=== PATIENT | female | born 1990 ===

== ENCOUNTER 2018-06-30 09:32 | Inpatient (IN) ==
[2018-06-30] MEDS ORDERED: FAMOTIDINE 20 MG/2 ML VIAL IV ONE (10:04)
[2018-06-30] MEDS ORDERED: ceFAZolin 2,000 MG in PREMIX 1 EACH IV ONE (10:04)
[2018-06-30] MEDS ORDERED: CITRIC ACID/SODIUM CITRATE 30 ML UDCUP PO ONE (10:04)
[2018-06-30] MEDS ORDERED: OXYTOCIN/LR 30 UNIT/1,000 ML BAG IV ONE (10:06)
[2018-06-30] MEDS ORDERED: OXYTOCIN 10 UNIT/ML VIAL IM ONE (10:06)
[2018-06-30 10:30] LABS: Basophils % 0.3 % (0.0-0.8); Eosinophils % 0.3 % (0.00-10.9); Hematocrit 30.1 VOL% (35.7-47.0); Hemoglobin 9.6 GM/DL (12.0-16.0); Immature Granulocytes % 0.4 %; Immature Granulocytes Absolute 0.03 #; Lymphocytes # 2.2 10*3/uL (1.4-4.0); Lymphocytes % 27.6 % (21.3-54.2); Mean Corpuscular HGB Conc 31.9 GM/DL (32-36); Mean Corpuscular Hemoglobin 25 PG (27-34); Mean Corpuscular Volume 78.8 FL (87-102); Mean Platelet Volume 11.7 FL (9.6-12.0); Monocytes # 0.5 10*3/uL (0.11-0.8); Monocytes % 5.9 % (1.7-12.7); NRBC # 0.02 10*3/uL; Neutrophils # 5.1 10*3/uL (1.4-7.4); Neutrophils % 65.5 % (38.7-73.9); Platelet Count 258 T/CUMM (130-400); Red Blood Count 3.82 MC/CUMM (3.8-5.5); Red Cell Distribution Width 15.3 % (9.3-17.3); White Blood Count 7.8 T/CUMM (4-12)
[2018-06-30] MEDS ORDERED: LACTATED RINGERS 1,000 ML IV SCH (10:30)
[2018-06-30 10:52] LABS: Albumin 2.4 G/DL (3.4-5.0); Bilirubin,Total 0.4 MG/DL (0.2-1.0); Calcium 8.1 MG/DL (8.5-10.1); Osmolality,Calculated 268.8 MOS/KG (273-304); Potassium 3.6 MMOL/L (3.5-5.1)
[2018-06-30 14:01] LABS: Cord Arterial Blood HCO3 20.6 MMOL/L
[2018-06-30 14:05] LABS: Cord Venous Blood HCO3 22.1 MMOL/L; Cord Venous Blood PCO2 45.7 MMHG; Cord Venous Blood PO2 22.5
[2018-06-30] MEDS ORDERED: fentaNYL 100 MCG/2 ML VIAL ONE (14:05)
[2018-06-30] MEDS ORDERED: BUPIVACAINE SPINAL 0.75% 2 ML AMP SPINAL ONE (14:05)
[2018-06-30] MEDS ORDERED: MORPHINE 10 MG/10 ML VIAL ONE (14:05)
[2018-06-30] MEDS ORDERED: ONDANSETRON 4 MG/2 ML VIAL ONE (14:06)
[2018-06-30] MEDS ORDERED: PHENYLEPHRINE 1 MG/10 ML SYRINGE IV ONE (14:06)
[2018-06-30 14:12] LABS: Apearance,Urine CLEAR (Clear); Bacteria,Urine Occasional /HPF (Few); Bilirubin,Urine Negative (Negative); Blood, Urine Negative (Negative); Glucose,Urine (UA) Negative (Negative); Ketones,Urine Negative (Negative); Mucus,Urine Occasional /LPF (Occasional); Nitrite,Urine Positive (Negative); Protein,Urine Negative; RBC,Urine 2 /HPF (0-4); Squamous Epithelial Cell,Urine Occasional /HPF (0-10); Urine Color Yellow (Yellow); Urine Specific Gravity 1.006 (1.001-1.035); Urine Urobilinogen < 2.0 EU/DL (0.2-1.0); WBC,Urine 4 /HPF (0-6)
[2018-06-30] MEDS ORDERED: ONDANSETRON 4 MG/2 ML VIAL IV PRN (14:50)
[2018-06-30] MEDS ORDERED: SIMETHICONE CHEW 80 MG TABLET PO PRN (14:50)
[2018-06-30] MEDS ORDERED: MAGNESIUM HYDROXIDE SUSP 30 ML UDCUP PO PRN (14:50)
[2018-06-30] MEDS ORDERED: OXYTOCIN/LR 20 UNIT/1,000 ML BAG IV ONE (14:50)
[2018-06-30] MEDS ORDERED: ACETAMINOPHEN 325 MG TABLET PO PRN (14:50)
[2018-06-30] MEDS ORDERED: IBUPROFEN 800 MG TABLET PO PRN (14:50)
[2018-06-30] MEDS ORDERED: RHO(D) IMMUNE GLOBULIN 300 MCG SYRINGE IM ONE (15:30)
[2018-06-30] MEDS ORDERED: ceFAZolin 1,000 MG in SYRINGE 1 EACH IV SCH (18:00)
[2018-06-30 21:41] LABS: Basophils % 0.1 % (0.0-0.8); Hematocrit 29.9 VOL% (35.7-47.0); Hemoglobin 9.5 GM/DL (12.0-16.0); Immature Granulocytes % 0.3 %; Immature Granulocytes Absolute 0.03 #; Lymphocytes # 1.9 10*3/uL (1.4-4.0); Lymphocytes % 20.9 % (21.3-54.2); Mean Corpuscular HGB Conc 31.8 GM/DL (32-36); Mean Corpuscular Hemoglobin 25 PG (27-34); Mean Corpuscular Volume 78.7 FL (87-102); Mean Platelet Volume 11.6 FL (9.6-12.0); Monocytes # 0.5 10*3/uL (0.11-0.8); Monocytes % 5.9 % (1.7-12.7); Neutrophils # 6.7 10*3/uL (1.4-7.4); Neutrophils % 72.8 % (38.7-73.9); Platelet Count 232 T/CUMM (130-400); Red Cell Distribution Width 15.2 % (9.3-17.3); White Blood Count 9.2 T/CUMM (4-12)
[2018-06-30] MEDS: ceFAZolin 1,000 MG in SYRINGE 1 EACH IV SCH (21:57)
[2018-07-01] MEDS: ceFAZolin 1,000 MG in SYRINGE 1 EACH IV SCH (05:27)
[2018-07-01 05:33] LABS: Basophils % 0.3 % (0.0-0.8); Eosinophils % 0.3 % (0.00-10.9); Hematocrit 32.5 VOL% (35.7-47.0); Hemoglobin 10.2 GM/DL (12.0-16.0); Immature Granulocytes % 0.3 %; Immature Granulocytes Absolute 0.03 #; Lymphocytes # 2.6 10*3/uL (1.4-4.0); Lymphocytes % 25.9 % (21.3-54.2); Mean Corpuscular HGB Conc 31.4 GM/DL (32-36); Mean Corpuscular Hemoglobin 25 PG (27-34); Mean Corpuscular Volume 79.1 FL (87-102); Mean Platelet Volume 11.6 FL (9.6-12.0); Monocytes # 0.7 10*3/uL (0.11-0.8); Monocytes % 6.9 % (1.7-12.7); Neutrophils # 6.5 10*3/uL (1.4-7.4); Neutrophils % 66.3 % (38.7-73.9); Platelet Count 258 T/CUMM (130-400); Red Blood Count 4.11 MC/CUMM (3.8-5.5); Red Cell Distribution Width 15.3 % (9.3-17.3); White Blood Count 9.9 T/CUMM (4-12)
[2018-07-01] MEDS: DOCUSATE SODIUM 100 MG CAPSULE PO SCH ×4 (05:55→20:02)
[2018-07-01] MEDS: LACTATED RINGERS 1,000 ML IV SCH ×3 (05:56→17:59)
[2018-07-01] MEDS: MULTIVITAMIN (PRENATAL) TABLET PO SCH ×2 (07:53→15:01)
[2018-07-01] MEDS: FERROUS SULFATE 325 MG TABLET PO SCH ×2 (15:03→21:23)
[2018-07-02 07:32] VITALS: BP 118/66
[2018-07-02] MEDS: DOCUSATE SODIUM 100 MG CAPSULE PO SCH (09:56)
[2018-07-02] MEDS: MULTIVITAMIN (PRENATAL) TABLET PO SCH (09:57)
[2018-07-02] MEDS: FERROUS SULFATE 325 MG TABLET PO SCH (09:57)
== END 2018-07-02 12:25 | disposition home or self-care (01) | DRG 540 ==
LOC: N.LDOUT 09:32 → N.LD 09:36 → N.OB 17:21
PROVIDERS: ADMIT Obstetrics & Gynecology; ATTEND Obstetrics & Gynecology
PROC: LDCSECT (ICD-10-PCS; 2018-06-30 12:30)

== ENCOUNTER 2019-07-20 05:55 | Inpatient (IN) ==
[2019-07-20] MEDS ORDERED: CITRIC ACID/SODIUM CITRATE 30 ML UDCUP PO ONE (06:08)
[2019-07-20] MEDS ORDERED: FAMOTIDINE 20 MG/2 ML VIAL IV ONE (06:08)
[2019-07-20] MEDS ORDERED: NALOXONE 0.4 MG/ML VIAL IV PRN (06:30)
[2019-07-20] MEDS ORDERED: ePHEDrine 50 MG/ML AMP IV PRN (06:30)
[2019-07-20] MEDS ORDERED: ceFAZolin 2,000 MG in PREMIX 1 EACH IV ONE (06:30)
[2019-07-20] MEDS ORDERED: FAMOTIDINE 20 MG TABLET PO ONE (06:30)
[2019-07-20] MEDS ORDERED: hydrOXYzine HCL 25 MG/1 ML VIAL IM PRN (06:30)
[2019-07-20] MEDS ORDERED: PROMETHAZINE 25 MG/1 ML VIAL IM PRN (06:30)
[2019-07-20] MEDS ORDERED: diphenhydrAMINE 50 MG/1 ML VIAL IV PRN ×2 (06:30→16:25)
[2019-07-20] MEDS ORDERED: fentaNYL 2 MCG/ROPIV 0.2% EPID 100 ML EPIDURAL SCH (06:30)
[2019-07-20] MEDS ORDERED: LACTATED RINGERS 1,000 ML IV SCH (06:30)
[2019-07-20] MEDS: LACTATED RINGERS 1,000 ML IV SCH ×3 (06:35→18:37)
[2019-07-20 06:49] LABS: Basophils % 0.1 % (0.0-0.8); Hematocrit 27.6 VOL% (35.7-47.0); Hemoglobin 8.4 GM/DL (12.0-16.0); Immature Granulocytes % 0.5 %; Immature Granulocytes Absolute 0.06 #; Lymphocytes # 0.7 10*3/uL (1.4-4.0); Lymphocytes % 6.1 % (21.3-54.2); Mean Corpuscular HGB Conc 30.4 GM/DL (32-36); Mean Corpuscular Volume 77.3 FL (87-102); Mean Platelet Volume 11.2 FL (9.6-12.0); Neutrophils % 92.3 % (38.7-73.9); Platelet Count 224 T/CUMM (130-400); Red Blood Count 3.57 MC/CUMM (3.8-5.5); Red Cell Distribution Width 16.1 % (9.3-17.3); White Blood Count 11.4 T/CUMM (4-12)
[2019-07-20 07:14] LABS: Hypochromasia 1+; Lymphocytes 7 % (20-55); Ovalocytes Slight; Platelet Estimate Adequate; Segmented Neutrophils 93 % (50-85); Total Cells Counted 100
[2019-07-20] MEDS ORDERED: OXYTOCIN/LR 30 UNIT/1,000 ML BAG IV ONE (07:41)
[2019-07-20] MEDS ORDERED: OXYTOCIN 10 UNIT/ML VIAL IM ONE (07:41)
[2019-07-20] MEDS ORDERED: OXYTOCIN/LR 20 UNIT/1,000 ML BAG IV SCH (08:00)
[2019-07-20 09:25] LABS: Cord Arterial Blood HCO3 21.2 MMOL/L
[2019-07-20] MEDS ORDERED: SIMETHICONE CHEW 80 MG TABLET PO PRN (09:26)
[2019-07-20] MEDS ORDERED: ONDANSETRON 4 MG/2 ML VIAL IV PRN (09:26)
[2019-07-20] MEDS ORDERED: RHO(D) IMMUNE GLOBULIN 300 MCG SYRINGE IM ONE (09:26)
[2019-07-20] MEDS ORDERED: OXYTOCIN/LR 20 UNIT/1,000 ML BAG IV ONE (09:26)
[2019-07-20] MEDS ORDERED: IBUPROFEN 800 MG TABLET PO PRN (09:26)
[2019-07-20] MEDS ORDERED: MAGNESIUM HYDROXIDE SUSP 30 ML UDCUP PO PRN (09:26)
[2019-07-20] MEDS ORDERED: ACETAMINOPHEN 325 MG TABLET PO PRN (09:26)
[2019-07-20 09:27] LABS: Cord Venous Blood HCO3 21.3 MMOL/L; Cord Venous Blood PCO2 41.7 MMHG; Cord Venous Blood PO2 27.8
[2019-07-20 09:32] LABS: Apearance,Urine CLEAR (Clear); Bacteria,Urine Many /HPF (Few); Bilirubin,Urine Negative (Negative); Blood, Urine Negative (Negative); Glucose,Urine (UA) Negative (Negative); Ketones,Urine 5 mg/dL (Negative); Mucus,Urine Few /LPF (Occasional); Nitrite,Urine Positive (Negative); Protein,Urine Negative; RBC,Urine 4 /HPF (0-4); Squamous Epithelial Cell,Urine Occasional /HPF (0-10); Urine Color Yellow (Yellow); Urine Specific Gravity 1.015 (1.001-1.035); Urine Urobilinogen < 2.0 EU/DL (0.2-1.0); WBC,Urine 46 /HPF (0-6)
[2019-07-20] MEDS ORDERED: BUPIVACAINE SPINAL 0.75% 2 ML AMP SPINAL ONE (09:56)
[2019-07-20] MEDS ORDERED: ONDANSETRON 4 MG/2 ML VIAL ONE (09:57)
[2019-07-20] MEDS ORDERED: DEXAMETHASONE 4 MG/1 ML VIAL ONE (09:57)
[2019-07-20] MEDS ORDERED: BUPIVACAINE MPF 0.25% 30 ML VIAL ONE (09:57)
[2019-07-20] MEDS ORDERED: PHENYLEPHRINE 1 MG/10 ML SYRINGE IV ONE (09:57)
[2019-07-20] MEDS ORDERED: MORPHINE 10 MG/10 ML VIAL ONE (09:57)
[2019-07-20] MEDS ORDERED: diphenhydrAMINE 50 MG/1 ML VIAL ONE (16:19)
[2019-07-20] MEDS ORDERED: SODIUM CHLORIDE 0.9% 50 ML IV ONE (16:20)
[2019-07-20] MEDS: ceFAZolin 1,000 MG in SYRINGE 1 EACH IV SCH (16:28)
[2019-07-20 17:03] LABS: Basophils % 0.1 % (0.0-0.8); Hematocrit 24.8 VOL% (35.7-47.0); Hemoglobin 7.5 GM/DL (12.0-16.0); Immature Granulocytes % 0.6 %; Immature Granulocytes Absolute 0.08 #; Lymphocytes % 7.1 % (21.3-54.2); Mean Corpuscular HGB Conc 30.2 GM/DL (32-36); Mean Platelet Volume 12.3 FL (9.6-12.0); Monocytes % 5.8 % (1.7-12.7); Neutrophils % 86.4 % (38.7-73.9); Platelet Count 237 T/CUMM (130-400); Red Blood Count 3.18 MC/CUMM (3.8-5.5); Red Cell Distribution Width 16.5 % (9.3-17.3); White Blood Count 13.6 T/CUMM (4-12)
[2019-07-20] MEDS: DOCUSATE SODIUM 100 MG CAPSULE PO SCH (21:08)
[2019-07-20] MEDS: FERROUS SULFATE 325 MG TABLET PO SCH (21:08)
[2019-07-20] MEDS ORDERED: diphenhydrAMINE CAP 25 MG CAPSULE PO PRN (22:35)
[2019-07-21] MEDS: ceFAZolin 1,000 MG in SYRINGE 1 EACH IV SCH (00:39)
[2019-07-21 00:59] LABS: Basophils % 0.1 % (0.0-0.8); Hematocrit 23.4 VOL% (35.7-47.0); Hemoglobin 7.2 GM/DL (12.0-16.0); Immature Granulocytes % 0.4 %; Immature Granulocytes Absolute 0.06 #; Lymphocytes # 1.6 10*3/uL (1.4-4.0); Lymphocytes % 11.7 % (21.3-54.2); Mean Corpuscular HGB Conc 30.8 GM/DL (32-36); Mean Platelet Volume 12.2 FL (9.6-12.0); Monocytes % 7.6 % (1.7-12.7); Neutrophils % 80.2 % (38.7-73.9); Platelet Count 236 T/CUMM (130-400); Red Cell Distribution Width 16.5 % (9.3-17.3); White Blood Count 13.4 T/CUMM (4-12)
[2019-07-21] MEDS: LACTATED RINGERS 1,000 ML IV SCH ×2 (02:42)
[2019-07-21] MEDS ORDERED: METOCLOPRAMIDE 10 MG TABLET PO PRN (08:00)
[2019-07-21] MEDS: METOCLOPRAMIDE 10 MG TABLET PO SCH ×2 (08:17→16:43)
[2019-07-21] MEDS: DOCUSATE SODIUM 100 MG CAPSULE PO SCH ×2 (08:17→20:22)
[2019-07-21] MEDS: FERROUS SULFATE 325 MG TABLET PO SCH ×2 (08:17→20:22)
[2019-07-21] MEDS: MULTIVITAMIN (PRENATAL) TABLET PO SCH (08:17)
[2019-07-21] MEDS ORDERED: diphenhydrAMINE CAP 50 MG CAPSULE ONE (16:56)
[2019-07-21] MEDS ORDERED: diphenhydrAMINE CAP 50 MG CAPSULE PO ONE (16:57)
[2019-07-22 07:11] VITALS: BP 117/70
[2019-07-22] MEDS: FERROUS SULFATE 325 MG TABLET PO SCH (10:12)
[2019-07-22] MEDS: DOCUSATE SODIUM 100 MG CAPSULE PO SCH (10:12)
[2019-07-22] MEDS: MULTIVITAMIN (PRENATAL) TABLET PO SCH (10:12)
== END 2019-07-22 12:00 | disposition home or self-care (01) | DRG 540 ==
LOC: N.LDOUT 05:55 → N.LD 05:59 → N.OB 13:02
PROVIDERS: ADMIT Obstetrics & Gynecology; ATTEND Obstetrics & Gynecology
PROC: LDCSECT (ICD-10-PCS; 2019-07-20 08:00)

== ENCOUNTER 2020-07-20 10:13 | Inpatient (IN) ==
[2020-07-20] MEDS ORDERED: CITRIC ACID/SODIUM CITRATE 30 ML UDCUP PO ONE (10:53)
[2020-07-20] MEDS ORDERED: FAMOTIDINE 20 MG/2 ML VIAL IV ONE (10:53)
[2020-07-20] MEDS ORDERED: ceFAZolin 2,000 MG in PREMIX 1 EACH IV ONE (10:53)
[2020-07-20] MEDS ORDERED: OXYTOCIN 10 UNIT/ML VIAL IM ONE (10:56)
[2020-07-20] MEDS ORDERED: OXYTOCIN/LR 30 UNIT/1,000 ML BAG IV ONE (10:56)
[2020-07-20 11:41] LABS: Basophils % 0.3 % (0.0-0.8); Hematocrit 25.6 VOL% (35.7-47.0); Hemoglobin 8.1 GM/DL (12.0-16.0); Immature Granulocytes % 0.5 %; Immature Granulocytes Absolute 0.03 #; Lymphocytes # 1.8 10*3/uL (1.4-4.0); Mean Corpuscular HGB Conc 31.6 GM/DL (32-36); Mean Corpuscular Volume 74.2 FL (87-102); Mean Platelet Volume 10.6 FL (9.6-12.0); Monocytes % 4.3 % (1.7-12.7); Neutrophils % 66.9 % (38.7-73.9); Platelet Count 229 T/CUMM (130-400); Red Blood Count 3.45 MC/CUMM (3.8-5.5); Red Cell Distribution Width 16.5 % (9.3-17.3); White Blood Count 6.5 T/CUMM (4-12)
[2020-07-20 12:01] LABS: Albumin 2.2 G/DL (3.4-5.0); Bilirubin,Total 0.7 MG/DL (0.2-1.0); Calcium 7.9 MG/DL (8.5-10.1); Osmolality,Calculated 275.4 MOS/KG (273-304); Potassium 3.6 MMOL/L (3.5-5.1); Total Protein 6.6 G/DL (6.4-8.2)
[2020-07-20] MEDS: LACTATED RINGERS 1,000 ML IV PRN ×2 (12:29→13:35)
[2020-07-20] MEDS ORDERED: fentaNYL 100 MCG/2 ML VIAL ONE (15:51)
[2020-07-20] MEDS ORDERED: PHENYLEPHRINE 1 MG/10 ML SYRINGE IV ONE (15:51)
[2020-07-20] MEDS ORDERED: BUPIVACAINE SPINAL 0.75% 2 ML AMP SPINAL ONE (15:51)
[2020-07-20] MEDS ORDERED: MORPHINE 10 MG/10 ML VIAL ONE (15:51)
[2020-07-20] MEDS ORDERED: ONDANSETRON 4 MG/2 ML VIAL ONE (15:51)
[2020-07-20] MEDS ORDERED: DEXAMETHASONE 4 MG/1 ML VIAL ONE ×2 (16:21)
[2020-07-20] MEDS ORDERED: ROPIVACAINE 0.5% 30 ML VIAL ONE (16:21)
[2020-07-20 16:52] LABS: Cord Arterial Blood HCO3 21.1 MMOL/L
[2020-07-20 16:52] LABS: Bilirubin,Urine Negative (Negative); Blood, Urine Negative (Negative); Glucose,Urine (UA) Negative (Negative); Ketones,Urine 20 mg/dL (Negative); Mucus,Urine Many /LPF (Occasional); Nitrite,Urine Negative (Negative); Protein,Urine Negative; RBC,Urine 6 /HPF (0-4); Squamous Epithelial Cell,Urine Occasional /HPF (0-10); Urine Appearance CLEAR (Clear); Urine Color Amber (Yellow); Urine Specific Gravity 1.021 (1.001-1.035); WBC,Urine 20 /HPF (0-6)
[2020-07-20 16:55] LABS: Cord Venous Blood HCO3 21.9 MMOL/L; Cord Venous Blood PCO2 45.1 MMHG; Cord Venous Blood PO2 31.3
[2020-07-20] MEDS ORDERED: ONDANSETRON 4 MG/2 ML VIAL IV PRN (17:11)
[2020-07-20] MEDS ORDERED: SIMETHICONE CHEW 80 MG TABLET PO PRN (17:11)
[2020-07-20] MEDS ORDERED: RHO(D) IMMUNE GLOBULIN 300 MCG SYRINGE IM ONE (17:11)
[2020-07-20] MEDS ORDERED: OXYTOCIN/LR 20 UNIT/1,000 ML BAG IV ONE (17:11)
[2020-07-20] MEDS ORDERED: ACETAMINOPHEN 325 MG TABLET PO PRN (17:11)
[2020-07-20] MEDS ORDERED: MAGNESIUM HYDROXIDE SUSP 30 ML UDCUP PO PRN (17:11)
[2020-07-20] MEDS ORDERED: hydrOXYzine HCL 25 MG/1 ML VIAL IM PRN (17:21)
[2020-07-20] MEDS ORDERED: HYDROmorphone 2 MG/1 ML VIAL IV PRN (17:21)
[2020-07-20] MEDS ORDERED: diphenhydrAMINE 50 MG/1 ML VIAL IV PRN (17:21)
[2020-07-20] MEDS ORDERED: LACTATED RINGERS 1,000 ML IV SCH (17:30)
[2020-07-20] MEDS ORDERED: KETOROLAC 60 MG/2 ML VIAL IM ONE (18:29)
[2020-07-21] MEDS: KETOROLAC 30 MG/1 ML VIAL IV SCH ×2 (00:10→06:10)
[2020-07-21] MEDS: ceFAZolin 1,000 MG in SYRINGE 1 EACH IV SCH ×2 (00:14→08:28)
[2020-07-21] MEDS ORDERED: diphenhydrAMINE 50 MG/1 ML VIAL IV PRN (00:41)
[2020-07-21 06:12] LABS: Basophils % 0.1 % (0.0-0.8); Hematocrit 23.5 VOL% (35.7-47.0); Hemoglobin 7.4 GM/DL (12.0-16.0); Immature Granulocytes % 0.5 %; Immature Granulocytes Absolute 0.04 #; Lymphocytes # 2.6 10*3/uL (1.4-4.0); Lymphocytes % 30.4 % (21.3-54.2); Mean Corpuscular HGB Conc 31.5 GM/DL (32-36); Mean Corpuscular Volume 74.8 FL (87-102); Mean Platelet Volume 10.9 FL (9.6-12.0); Monocytes % 6.1 % (1.7-12.7); Neutrophils % 62.9 % (38.7-73.9); Platelet Count 244 T/CUMM (130-400); Red Blood Count 3.14 MC/CUMM (3.8-5.5); Red Cell Distribution Width 16.3 % (9.3-17.3); White Blood Count 8.6 T/CUMM (4-12)
[2020-07-21 06:37] LABS: Hypochromasia 2+; Microcytosis 1+; Platelet Estimate Adequate
[2020-07-21] MEDS: DOCUSATE SODIUM 100 MG CAPSULE PO SCH ×3 (07:48→21:26)
[2020-07-21] MEDS ORDERED: ceFAZolin 1,000 MG in SYRINGE 1 EACH IV SCH (08:30)
[2020-07-21] MEDS: MULTIVITAMIN (PRENATAL) TABLET PO SCH (08:36)
[2020-07-21] MEDS: FERROUS SULFATE 325 MG TABLET PO SCH ×2 (08:36→21:25)
[2020-07-21] MEDS: IBUPROFEN 800 MG TABLET PO PRN (21:26)
[2020-07-22] MEDS: FERROUS SULFATE 325 MG TABLET PO SCH (08:29)
[2020-07-22] MEDS: MULTIVITAMIN (PRENATAL) TABLET PO SCH (08:30)
[2020-07-22] MEDS: IBUPROFEN 800 MG TABLET PO PRN (08:30)
[2020-07-22 10:59] VITALS: BP 127/55
[2020-07-22] MEDS: DOCUSATE SODIUM 100 MG CAPSULE PO SCH (14:49)
== END 2020-07-22 13:30 | disposition home or self-care (01) | DRG 540 ==
LOC: N.LD 10:13 → N.OB 20:00
PROVIDERS: ADMIT Obstetrics & Gynecology; ATTEND Obstetrics & Gynecology
PROC: LDCSECT (ICD-10-PCS; 2020-07-20 13:15)